=== PATIENT | female | born 1960 | race Caucasian/White ===

== ENCOUNTER 2017-09-03 04:36 | Emergency (ER) | payer SELFPAY ==
[2017-09-03] MEDS ORDERED: Ketorolac Tromethamine 30 MG/ML VIAL ONE (05:10)
[2017-09-03] MEDS ORDERED: Ondansetron HCl/PF 4 MG/2 ML Vial ONE (05:10)
[2017-09-03] MEDS ORDERED: Morphine 4 MG/ML VIAL ONE (05:30)
[2017-09-03 05:39] LABS: Bilirubin Small (Negative); Blood, Urine Moderate (Negative); Clarity Hazy (Clear); Glucose, Urine (Dipstick) Negative (Negative); Leukocyte Negative (Negative); Nitrite Negative (Negative); Protein, Urine (Dipstick) 30 mg/dL (Neg-Trace); Specific Gravity, Urine 1.031 (1.002-1.036)
[2017-09-03 05:40] LABS: Bacteria/HPF 1+ HPF (None Seen); Renal Epithelial 0-3 HPF (0-3); Transitional Epithelial 0-3 HPF (0-3)
[2017-09-03 05:56] LABS: #Basophils 0.1 thou/uL (0.0-0.2); #Eosinphils 0.2 thou/uL (0.0-0.7); #Lymphocytes 1.2 thou/uL (1.20-3.40); #Monocytes 0.5 thou/uL (0.11-0.59); #Neutrophils 4.7 thou/uL (1.40-6.50); %Basophils 1.9 % (0.0-1.0); %Eosinophils 2.4 % (0.0-10.0); %Lymphocytes 18.1 % (21.0-51.0); %Monocytes 7.9 % (0.0-10.0); %Neutrophils 69.7 % (42.0-75.0); Hemoglobin 11.9 g/dL (12.0-16.0); Mean Corpuscular HGB CONC 34.5 g/dL (32.0-36.0); Mean Corpuscular Hemoglobin 33.3 pg (27.0-31.0); Mean Corpuscular Volume 96.7 fl (81.0-99.0); Mean Platelet Volume 6.7 fL (7.4-10.4); Platelet Count 265 thou/uL (130-400); RBC Distribution Width 11.9 % (11.5-14.5); Red Blood Cell (RBC) Count 3.58 mill/uL (4.20-5.40); White Blood Cell (WBC) Count 6.7 thou/uL (4.8-10.8)
[2017-09-03 05:58] LABS: ALT (SGPT) 12 U/L (8-55); AST (SGOT) 21 U/L (5-34); Albumin 3.5 g/dL (3.5-5.0); Alkaline Phosphatase 106 U/L (40-150); Anion Gap 13 mmol/L (10-20); BUN (Urea Nitrogen) 14 mg/dL (9.8-20.1); Bilirubin, Total 0.5 mg/dL (0.2-1.2); Calc. Creatinine Clearance 0 mL/min (70-130); Calcium 9.4 mg/dL (7.8-10.44); Carbon Dioxide 30 mmol/L (22-29); Chloride 104 mmol/L (98-107); Estimated GFR-MDRD Greater than 90; Globulin 3.2 g/dL (2.4-3.5); Glucose 99 mg/dL (70-105); Potassium 3.4 mmol/L (3.5-5.1); Protein, Total 6.7 g/dL (6.0-8.3); Sodium 144 mmol/L (136-145)
[2017-09-03] MEDS ORDERED: cefTRIAXone\\ROCEPHIN 1 GM VIAL ONE (06:22)
[2017-09-03] MEDS ORDERED: Sodium Chloride 0.9% 1,000 ML BAG ONE (06:55)
--- NOTE | 2017-09-03 07:53 | RAD ---
CHEST 2 VIEWS: HISTORY: Cough. FINDINGS: Cardiac silhouette and pulmonary vasculature are unremarkable. Large mass at the level of the superi or segment right lower lobe back to the posterior pleura and measures up to 10.4 x 9.0 cm diameters. Additional nodules are present throughout each lung. No pleural fluid or pneumothorax are evident. Skin flor overlie the anterior abdomen. IMPRESSION: Extensive metastatic disease of the chest. POS: ROYA
--- NOTE | 2017-09-03 08:14 | CT ---
PRELIMINARY REPORT/[facility]/EMERGENCY AFTER HOURS PROCEDURE: EXAM: CT Abdomen and Pelvis Without Intravenous Contrast CLINICAL HISTORY: 56 years old, female; Pain; Abdominal pain; Flank; Left; Patient HX: H/o stones; Left flank pain sinc e thursday; I imaged higher due to the mass as seen on the rt side of chest; She has not been diagnosed with any respiratory issues; She did however indicate that she had an uri for the last couple of wee ks with a cough. TECHNIQUE: Axial computed tomography images of the abdomen and pelvis without intravenous contrast. All CT scans at this facility use one or more dose reduction techniques, viz.: automated exposure control; ma/kV adjustment per patient size (including targeted exams where dose is matched to indication; i.e. head) ; or iterative reconstruction technique. Coronal reformatted images were created and reviewed. COMPARISON: No relevant prior studies available. FINDINGS: Lower thorax: Diffuse bilateral pulmonary nodules and right lower lobe heterogeneous mass measuring u p to 8 cm with central areas of calcification/increased density ABDOMEN: Liver: Unremarkable. Gallbladder and bile ducts: Prior cholecystectomy. No ductal dilation. Pancreas: Unremarkable. No ductal dilation. Spleen: Unremarkable. No splenomegaly. Adrenals: Unremarkable. No mass. Kidneys and ureters: Unremarkable. No obstructing stones. No hydronephrosis. Stomach and bowel: Unremarkable. No obstruction. No mucosal thickening. Appendix: No findings to suggest acute appendicitis. PELVIS: Bladder: Unremarkable. No stones. Reproductive: Unremarkable as visualized. ABDOMEN and PELVIS: Intraperitoneal space: Skin flor noted in the midline No free air. No significant fluid collection . Bones/joints: No acute fracture. No dislocation. Soft tissues: Unremarkable. Vasculature: Unremarkable. No abdominal aortic aneurysm. Lymph nodes: Unremarkable. No enlarged lymph nodes. IMPRESSION: Diffuse pulmonary metastatic disease No definite acute intra-abdominal process detected Postsurgical changes as noted Thank you for allowing us to participate in the care of your patient. Dictated and Authenticated by: Brayden Estrada MD 09/03/2017 5:46 AM Central Time ([place] & [place]) FINAL REPORT ABDOMEN CT WITHOUT CONTRAST PELVIC CT WITHOUT CONTRAST: Date: 09/03/17 HISTORY: Abnormal chest radiograph. Upper respiratory infection and cough. Left flank pain. COMPARISON: None. TECHNIQUE: Abdomen and pelvic CT are performed without IV or oral contrast. Coronal reformatted images are submi tted for interpretation. FINDINGS: This report is in agreement with the preliminary report by Julien. Multiple bilateral lung parenchymal nodules with largest mass measuring 8.0 cm and located in the right lower lobe. Heterogeneous attenua tion suggests areas of possible necrosis and calcification. No evidence of obstructive uropathy. Dedi cated postcontrast chest CT is recommended. POS: ABAD
== END 2017-09-03 07:19 | disposition short-term general hospital (02) ==
LOC: MADERS 04:36
DX: N39.0 Urinary tract infection, site not specified (principal); N23 Unspecified renal colic; R91.8 Other nonspecific abnormal finding of lung field; F17.210 Nicotine dependence, cigarettes, uncomplicated; Z71.6 Tobacco abuse counseling
CPT/HCPCS: 36415; 71046; 74176; 80053; 81003; 81015; 85025; 94760; 96361; 96374; 96375; 99406; J0696; J1885; J2270; J2405; J7050